=== PATIENT | male | born 1980 | race Caucasian/White ===

== ENCOUNTER 2019-11-10 22:29 | Emergency (ER) | payer BC, OTHER ==
[~2019-11-10] VITALS: Ht 188 cm; Wt 163.6 kg
--- NOTE | 2019-11-10 22:30 | NUR ---
PT SANDEEP ULRICH FROM HOME AFTER SUFFERING OVERDOSE ON OXYCODONE HE BOUGHT OFF THE STREET. GIRLFRIEND CALLED EMS UPON FINDING PT UNRESPONSIVE AND APNEIC. 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 UPON EMS ARRIVAL, PT REPORTEDLY HAD SPO2 OF 12, GSC 3, ETCO2 105. PT WAS BAGGED BY MEDICS, THEN GIVEN 0.5MG NARCAN. PT THEN REGAINED CONSCIOUSNESS AND WAS OX4, VS 124/79, SPO2 98% ON 4L NC, HR 100, RR 18, AND ETCO2 50. PT ARRIVES TO ED A&OX4, STATES HE JUST FEELS A LITTLE GROGGY. DENIES SI. ERP AT BS IMMEDIATELY. PT ON ALL MONITORS.
[2019-11-10 22:56] LABS: MEAN CORPUSCULAR HEMOGLOBIN 29.6 pg (27.5-34.5); MEAN CORPUSCULAR VOLUME 89.7 fL (81-97); MEAN PLATELET VOLUME 9.1 fL (7.4-10.4); PLATELET COUNT 284 x10^3/uL (130-400); RED BLOOD COUNT 5.34 x10^6/uL (4.38-5.82); RED CELL DISTRIBUTION WIDTH 15.1 % (9.4-14.8)
[2019-11-10 23:04] LABS: ALANINE AMINOTRANSFERASE 84 U/L (12-78); ALBUMIN 3.6 g/dL (3.4-5.0); ANION GAP 7 mmol/L (5-15); CALCIUM 8.1 mg/dL (8.5-10.1); CHLORIDE 104 mmol/L (98-107)
[2019-11-10 23:05] LABS: SALICYLATE LEVEL < 1.7 mg/dL (2.8-20.0)
--- NOTE | 2019-11-10 23:05 | NUR ---
NEW IV STARTED. PT REMAINS A&OX4, VSS. ETCO2 50.
[2019-11-10 23:07] LABS: ALKALINE PHOSPHATASE 77 U/L (45-117); BILIRUBIN,TOTAL 0.5 mg/dL (0.2-1.0); CREATININE 1.06 mg/dL (0.7-1.3); TOTAL PROTEIN 6.8 g/dL (6.4-8.2)
[2019-11-10 23:37] LABS: BASOPHILS # (AUTO) 0.05 x10^3/uL (0-0.1); BASOPHILS % (AUTO) 0 % (0-1); EOSINOPHILS % (AUTO) 1 % (1-7); LYMPHOCYTES # (AUTO) 2.73 x10^3/uL (1-3.4); LYMPHOCYTES % (AUTO) 14 % (22-44); MD SCAN; MONOCYTES # (AUTO) 0.95 x10^3/uL (0.2-0.8); MONOCYTES % (AUTO) 5 % (2-9); NEUTROPHILS # (AUTO) 15.37 x10^3/uL (1.8-6.8); NEUTROPHILS % (AUTO) 80 % (42-75)
--- NOTE | 2019-11-10 23:51 | NUR ---
GIRLFRIEND WAS AT BS VISITING. PT REMAINS AWAKE, STABLE, NO CHANGE IN STATUS. WILL MONITOR UNTIL 0100 PER ORDERS.
[2019-11-11 00:37] VITALS: BP 111/61
--- NOTE | 2019-11-11 00:38 | NUR ---
PT RESTING QUIETLY IN GURNEY, AWAKENS EASILY. VSS.
--- NOTE | 2019-11-11 01:04 | NUR ---
ERP WAS IN FOR RECHECK. PT AWAKE, SPO2 94% ON RA. GIRLFRIEND AT BS.
--- NOTE | 2019-11-11 01:14 | NUR ---
D/C INSTRUCTIONS & F/U APPT RV'WD WITH PT AND GIRLFRIEND. PT AMBULATED OUT OF ED WITH GIRLFRIEND WITHOUT DIFFICULTY.
== END 2019-11-11 01:16 | disposition home or self-care (01) ==
LOC: ED 23:46
DX: G89.29 Other chronic pain (principal); M54.9 Dorsalgia, unspecified; T40.2X1A Poisoning by other opioids, accidental (unintentional), initial encounter; F17.200 Nicotine dependence, unspecified, uncomplicated; Y92.89 Other specified places as the place of occurrence of the external cause
CPT/HCPCS: 36415; 80053; 80307; 85025; 93005; 99284